=== PATIENT | male | born 1945 | race Caucasian/White ===

== ENCOUNTER 2020-06-13 00:13 | Outpatient (CLI) | payer MEDICARE, SELFPAY ==
[2020-06-13 18:31] LABS: SARS-CoV-2 RNA PCR Negative
== END 2020-06-13 00:14 | disposition home or self-care (01) ==
LOC: ANHCOVIDDT 00:13
PROVIDERS: PCP Internal Medicine; Visit Provider Internal Medicine Gastroenterology
DX: Z01.812 Encounter for preprocedural laboratory examination (principal); Z11.59 Encounter for screening for other viral diseases
CPT/HCPCS: 87635; C9803; U0003

== ENCOUNTER 2020-06-16 02:15 | Day surgery (SDC) | payer MEDICARE, SELFPAY ==
[2020-06-09 14:38] VITALS: BMI 25.4
[2020-06-16] MEDS: LACTATED RINGERS 1,000 ML 150 ML IV CONT (06:45)
[2020-06-16 06:47] VITALS: BP 141/98; PULSE 83; RESP 16; TEMP 36.6; O2SAT 98; BMI 25.2
--- NOTE | 2020-06-16 07:08 | P.PNAN_ITS ---
Anes - Initial Pre Proc Eval Procedure: Operation Date: 06/16/20 07:30 Proposed Procedures p Screening Colonoscopy - Herb Kramer MD Date/Time: 06/16/20 07:08 Surgeon: Herb Kramer MD Pre Op Diagnosis: Fam Hx Colon Ca Patient Data Age: 74 Gender: M Height: 6 ft 2 in Weight: 89.2 kg Last Vital Signs Temp 97.9 F 06/16/20 06:47 Pulse 83 06/16/20 06:47 Resp 16 06/16/20 06:47 BP 141/98 H 06/16/20 06:47 Pulse Ox 98 06/16/20 06:47 Allergies Allergy/AdvReac Type Severity Reaction Status Date / Time aspirin Allergy Unknown Gastrointestinal Verified 06/16/20 06:32 Upset SEAFOOD Allergy Severe HIVES Uncoded 06/16/20 06:32 Home Medications Medication Instructions Recorded Confirmed Type cholecalciferol (vitamin D3) 10 mcg PO DAILY 06/09/20 06/16/20 History [Vitamin D3] cyanocobalamin (vitamin B-12) 1,000 mcg PO DAILY 06/09/20 06/16/20 History duloxetine [Cymbalta] 90 mg PO DAILY 06/09/20 06/16/20 History finasteride 5 mg PO DAILY 06/09/20 06/16/20 History levothyroxine 88 mcg PO DAILY 06/09/20 06/16/20 History losartan 100 mg PO DAILY 06/09/20 06/16/20 History montelukast [Singulair] 10 mg PO DAILY 06/09/20 06/16/20 History Patient hx anesthesia problems: none Family hx anesthesia problems: none [facility] Past Medical History Medical History (Updated 06/15/20 @ 12:39 by Navarro Kahn MD) Anxiety Depression Hypertension Hypothyroid MARIBEL (obstructive sleep apnea) Family History Family History (Updated 12/14/16 @ 13:15 by DOCTOR UNKNOWN) Other Family history of malignant neoplasm Social History Social History Smoking status: Former smoker Smoking end date: 11/27/74 Alcohol intake: current Anes - Eval Final PreProcedure Day of Procedure 06/16/20 07:08 Patient weight: normal Heart: regular rate and rhythm Lungs: clear to auscultation Airway: Mallampati scale class II Neurological: alert and oriented Last oral intake: >/= 8 hours ASA classification: III Emergent: no Anesthetic plan: proceed Anesthesia type and monitoring: general GIVS and standard monitoring Informed Consent: The patient's anesthetic plan and its attendant risks and benefits were discussed with the patient/family/POA. Questions were solicited and answers provided to the satisfaction of the patient/family/POA.
--- NOTE | 2020-06-16 07:57 | WPDGICN ---
Assessment and Plan Assessment and plan (1) Family history of colon cancer in father: Code(s): Z80.0 - Family history of malignant neoplasm of digestive organs Status: Acute Assessment and Plan: Patient's father had colon cancer plan is for surveillance colonoscopy now and at 5 year intervals in the future. GI Consult Note Consult date/time: 06/16/20 07:57 HPI: Contreras Pulliam is a 74 year old male Seen in evaluation at the request of Dr. Jim Butterfield. Patient presents for screening colonoscopy. His current weight appetite bowel movements are normal. He denies abdominal pain. He denies bleeding. His bowel habits are regular. Family history is significant his father with colon cancer. There is no other family history of colon polyps. Patient's last colonoscopy 2012. Review of Systems Review of Systems: All systems reviewed & are unremarkable except as noted in HPI and below PMFSH Past Medical History Medical History Anxiety Depression Hypertension Hypothyroid MARIBEL (obstructive sleep apnea) Family History Family History Other Family history of malignant neoplasm Social History Social History Smoking status: Former smoker Smoking end date: 11/27/74 Alcohol intake: current Meds Home Medications and Allergies Home Medications Medication Instructions Recorded Confirmed Type cholecalciferol (vitamin D3) 10 mcg PO DAILY 06/09/20 06/16/20 History [Vitamin D3] cyanocobalamin (vitamin B-12) 1,000 mcg PO DAILY 06/09/20 06/16/20 History duloxetine [Cymbalta] 90 mg PO DAILY 06/09/20 06/16/20 History finasteride 5 mg PO DAILY 06/09/20 06/16/20 History levothyroxine 88 mcg PO DAILY 06/09/20 06/16/20 History losartan 100 mg PO DAILY 06/09/20 06/16/20 History montelukast [Singulair] 10 mg PO DAILY 06/09/20 06/16/20 History Allergies Allergy/AdvReac Type Severity Reaction Status Date / Time aspirin Allergy Unknown Gastrointestinal Verified 06/16/20 06:32 Upset SEAFOOD Allergy Severe HIVES Uncoded 06/16/20 06:32 Vital Signs Vital Signs - 24 hr 06/16/20 06:47 Temperature 97.9 F Pulse Rate 83 Respiratory Rate 16 Blood Pressure 141/98 H Pulse Oximetry 98 Exam Narrative: Exam Narrative: Physical exam reveals patient to be alert. Vital signs stable. HEENT exam unremarkable. Lungs are clear to auscultation and percussion. Heart is without murmur or extra sounds. Abdominal exam bowel sounds are present soft nontender with no hepatosplenomegaly. Digital external rectal exam normal.
[2020-06-16 07:58] VITALS: BP 137/85; PULSE 52; RESP 16; O2SAT 100
[2020-06-16 08:08] VITALS: BP 153/92; PULSE 46; RESP 16; O2SAT 100
[2020-06-16 08:18] VITALS: BP 152/91; PULSE 53; RESP 16; O2SAT 100
== END 2020-06-16 08:35 | disposition home or self-care (01) ==
PROVIDERS: PCP Internal Medicine; Visit Provider Internal Medicine Gastroenterology
PROC: 0DJD8ZZ Inspection of Lower Intestinal Tract, Via Natural or Artificial Opening Endoscopic (ICD-10-PCS; CPT 45378; principal; 2020-06-16 07:30)
DX: Z12.11 Encounter for screening for malignant neoplasm of colon (principal); K64.8 Other hemorrhoids; Z80.0 Family history of malignant neoplasm of digestive organs; I10 Essential (primary) hypertension; E03.9 Hypothyroidism, unspecified; G47.33 Obstructive sleep apnea (adult) (pediatric); F41.8 Other specified anxiety disorders; Z87.891 Personal history of nicotine dependence
CPT/HCPCS: G0105; J2704; J7120

== ENCOUNTER 2025-06-24 01:58 | Day surgery (SDC) | payer MEDICARE, SELFPAY ==
[2025-06-11 09:54] VITALS: BMI 26.9
--- OUTSIDE RECORDS SUMMARY | 2025-06-24 02:00 | XMS_ITS | Clinical Summary ---
Author Organization [facility] Address [address] [place] [address] Care Team Providers Care Lead Manufacturing Technician Name Role Phone Jim Butterfield MD Primary Care Provider [phone] Source Comments [facility],non-owned Affiliates and Associated Physician Practices is amultiple site organization consisting of ambulatory clinics and hospital sitesin [place], [place], [place] and [place]. This disclosure is being madepursuant to the Care Everywhere program and may not contain all information available regarding this patient. 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 Gender Identity Not on file Sexual Orientation Not on file Plan of Treatment Health Maintenance Due Date Last Done Comments HEPATITIS C SCREENING 06/30/1963 DTAP/TDAP/TD VACCINES (1 - Tdap) 1966 PNEUMOCOCCAL VACCINE 50+ (1 of 1 - PCV) 1997 ZOSTER VACCINE (1 of 2) 1997 Respiratory Syncytial Virus (RSV) Vaccine Pt: or over 60 yrs (1 - 1-dose 75+ series) 2022 COVID-19 VACCINE ( - 2023-2 5 season) 2024 DEPRESSION SCREENING 11/27/2024 INFLUENZA VACCINE (#1) 2025 HEPATITIS B VACCINE Aged Out No longe r eligible based on patient's age to complete this topic HIB VACCINE Aged Out No longer eligi ble based on patient's age to complete this topic HPV VACCINE Aged Out No longer eligi ble based on patient's age to complete this topic MENINGOCOCCAL (Group B) VACC INE SHARED DECISION-MAKING Aged Out No longer eligibl e based on patient's age to complete this topic MENINGOCOCCAL GROUPS A/C/Y/W VACCINE Aged Out No longer eligible b ased on patient's age to complete this topic Insurance [facility] AETNA Care Teams Lead Manufacturing Technician Relationship Specialty Start Date End Date Jim Butterfield MD [address] [place] [address] [place] [id number] PCP - General 11/02/10
--- OUTSIDE RECORDS SUMMARY | 2025-06-24 02:00 | XMS_ITS | Encounter Summary ---
Author Organization [facility] Address [address] [place] [address] Care Team Providers Care Director Of Rooms Name Role Phone Jim Butterfield MD Primary Care Provider [phone] Encounter Details Date Type Department Care Team (Late st Contact Info) Description 01/19/2022 Lab Requisition [facility] [address] [place] [id number] Jose Mendosa MD [address] [place] [address] Social History Tobacco Use Types Packs/Day Years Used Date Smoking Tobacco: Never Assessed Sex and Gender Information Value Date Recorded Sex Assigned at Not on file Legal 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 Gender Identity Not on file Sexual Orientation Not on file documented as of this encounter Plan of Treatment Not on file documented as of this encounter Procedures Procedure Name Priority Date/Time Associated Diagnosis Comments DERMATOPATHOLOGY Routine 01/18/2022 12:0 0 AM BUSINESS UNIT CONTROLLER documented in this encounter Results * DERMATOPATHOLOGY (01/18/2022 12:00 AM BUSINESS UNIT CONTROLLER) Case Report Dermatopathology Report Case: [id number] Authorizing Provider: Jose Mendosa MD Collected: 01/18/2022 12:00 AM Ordering Location: [facility] Received: 01/19/2022 04:05 PM Pathologist: Reanna Barrett MD Specimen: Skin, right low back 3:36 PM BUSINESS UNIT CONTROLLER DERMATOPATHOLOGY LABORATORY Final Diagnosis Specimen A. SKIN, right low back: COMPOUND MELANOCYTIC NEVUS (D22.5) ACTINIC KERATOSIS, FOCAL (L57.0) (see microscopic description) 2 3:36 PM [facility] DERMATOPATHOLOGY LABORATORY at [address] BUSINESS UNIT CONTROLLER Clinical History Nevus vs MM. Path # [id number]. 2 3:36 PM [facility] DERMATOPATHOLOGY LABORATORY Gross Description Specimen A: Received is one formalin filled container labeled with the patient's name and designated right low back. The specimen consists of a shave biopsy measuring [id number]. Jar 0. 2 3:36 PM [facility] DERMATOPATHOLOGY LABORATORY Microscopic Description Specimen A. SKIN, right low back: There are nests of melanocytes at the dermal-epidermal junction and within the dermis, highlighted by MART-1/Melan-A immunostain. There is focal parakeratosis. The lower half of the epidermis shows focal disorderly maturation of keratinocytes with nuclear pleomorphism. 2 3:36 PM [facility] DERMATOPATHOLOGY LABORATORY Disclaimer An external and internal positive and negative controls are appropriate for the histochemical, immunohistochemical and immunofluorescence stain(s) in this case (if any), except where stated explicitly. The performance characteristics of the stain(s) cited in this report were developed and its performance characteristic determined by the Dermatopathology Laboratory at [facility], directed by Dr. Bing Jansen. These tests need not be, and therefore are not, approved by the [place] Food and Drug Administration. The tests are used for clinical purposes. Billing Codes Specimen Charges Stain Charges 42908 1 98565 1 2 3:36 PM [facility] DERMATOPATHOLOGY LABORATORY Embedded Images 2 3:36 PM [facility] DERMATOPATHOLOGY LABORATORY Pathology/Cytolog y TISSUE SPECIMEN FROM SKIN / Unknown 01/18/2022 01/19/2022 4:05 PM [facility] us Jose Mendosa MD LAB - PATHOLOGY/CYTOLOGY ORDER KATHRYN Final Result DERMATOPATHOLOGY LABORATORY [facility] - Department of Dermatology [address] [phone] documented in this encounter Visit Diagnoses Not on filedocumented in this encounter Care Teams Director Of Rooms Relationship Specialty Start Date End Date Jim Butterfield MD [address] [place] [phone] PCP - General 11/02/10 documented as of this encounter
--- OUTSIDE RECORDS SUMMARY | 2025-06-24 02:00 | XMS_ITS | Clinical Summary ---
Author Organization [facility] Address [address] [place] [address] Care Team Providers Care Licensed Esthetician Name Role Phone Mary Parks Primary Care Provider [phone] Allergies Active Allergy Reactions Criticality Noted Date Comments Aspirin GI Upset Low 06/18/2020 Shellfish-Derived Products Hives Medium 0 Medications DULoxetine 60 MG capsule Take 1 capsule (60 mg total) by mouth daily. 0 Active finasteride 5 MG tablet Take 1 tablet (5 mg total) by mouth daily. 0 Active EUTHYROX 88 MCG tablet Take 1 tablet (88 mcg total) by mouth daily. 0 Active montelukast 10 MG tablet Take 1 tablet (10 mg total) by mouth nightly at bedtime. 0 Active SF 5000 PLUS 1.1 % Cream USE SMALL AMOUNT TWICE DAILY BRUSH AND SPIT OUT EXCESS. DO NOT RINSE WITH WATER AFTER. 0 Active vitamin D3, cholecalciferol , 1000 UNIT Tab tablet Take 1 tablet (1,000 Units total) by mouth daily. Active Cyanocobalamin (VITAMIN B 12 OR) Take 1,000 mcg by mouth daily. Active AZELASTINE 137 MCG/SPRAY nasal spray 2 sprays by Nasal route 2 (two) times daily. 0 Active fluticasone propionate 50 MCG/ACT nasal spray 2 sprays by Each Nostril route daily. Active zinc sulfate 220 MG capsule Take 1 capsule (50 mg of elemental zinc total) by mouth daily. Active vitamin C 1000 MG tablet Take 1 tablet (1,000 mg total) by mouth daily. Active olmesartan (BENICAR) 40 MG tablet Take 1 tablet (40 mg total) by mouth daily. 3 Active amLODIPine (NORVASC) 5 MG tablet Take 1 tablet (5 mg total) by mouth every evening. 3 Active rosuvastatin (CRESTOR) 5 MG tablet Take 1 tablet (5 mg total) by mouth daily. 3 Active levocetirizine (XYZAL ALLERGY 24HR) 5 MG tabletIndicatio ns:Acute non-recurrent frontal sinusitis Take 1 tablet (5 mg total) by mouth daily. 30 tablet 4 Active Hospital, Clinic, or Other Facility Administered Medication Ordered Dose Route Frequency Start Date End Date Status triamcinolone acetonide (KENALOG-40) injection 40 mgIndications:Acute non-recurrent frontal sinusitis,Wheezing 40 mg IM Once 12/06/2023 Active Active Problems Problem Noted Date Diagnosed Date Pulmonary emboli ([facility] [address]) 06/03/2022 Immunizations Immunization Administration Dates Next Due MODERNA COVID-19 (12+) MRNA, LNP-S, PF, 100 MCG/ 0.5 ML DOSE 01/21/2021,12/24/2020 Shingrix 07/13/2018 Family History Medical History Relation Comments Colon Cancer Father No Known Problems Maternal Grandfather No Known Problems Maternal Grandmother Cancer Mother Myeloma No Known Problems Paternal Grandfather No Known Problems Paternal Grandmother Relation Status Comments Brother Alive Daughter Alive Father Maternal Grandfather Maternal Grandmother Mother Paternal Grandfather Paternal Grandmother Son Alive Social History Tobacco Use Types Packs/Day Years Used Date Smoking Tobacco: Former Cigarettes 1 10 Passive Smoke Exposure: Past Smokeless Tobacco: Never Tobacco Cessation:Counseling Given: No Comments:non smoker, quit age 29 Alcohol Use Standard Drinks/Week Comments Yes 0 (1 standard drink = 0.6 oz pur e alcohol) 3-4 beers/week AUDIT-C Answer Date Recorded Q1: How often do you have a drink containing alc ohol? 2-4 times a month 06/18/2020 Q2: How many drinks containi ng alcohol do you have on a typical day when you are drinking? 1 or 2 06/18/2020 Q3: How often do you have si x or more drinks on one occasion? Never 06/18/2020 PHQ-2 Answer Date Recorded Patient Health Questionnaire-2 Score 0 12/06/2023 Sex and Gender Information Value Date Recorded Sex Assigned at Male 06/18/2020 8:48 AM CDT Legal Sex Male 5:46 PM CDT Gender Identity Male 06/18/2020 8:48 AM CDT Sexual Orientation Straight 06/18/2020 8: 48 AM CDT Last Filed Vital Signs Vital Sign Reading Time Taken Comments Blood Pressure 153/77 02/21/2025 5:31 PM CDT Pulse 57 02/21/2025 5:31 PM CDT Temperature 36.4 C (97.5 F) 02/21/2025 5:31 PM CDT Respiratory Rate 16 02/21/2025 5:31 PM CDT Oxygen Saturation 99% 02/21/2025 5:31 PM CDT Inhaled Oxygen Concentration - - Weight 95.3 kg (210 lb) 02/21/2025 2:07 PM CDT Height 185.4 cm (6' 1) 02/21/2025 2:07 PM CDT Body Mass Index 27.71 02/21/2025 2:07 PM CDT Plan of Treatment Health Maintenance Due Date Last Done Comments Hepatitis C 1963 DTaP, Tdap and Td Vaccines (1 - Tdap) 1966 Pneumococcal Vaccine: 50+ Years (1 of 1 - PCV) 1997 Annual Medicare Wellness Visit 2012 Zoster Vaccines (2 of 2) 09/07/2018 07/13/2018 RSV Immunization or 60+ Years (1 - 1-dose 75+ series) 2022 COVID-19 Vaccine ( season) 2024 09/29/2023, 09/26/2022, 09/19/2021, Additional history exists PHQ-2 (Physician Randall) 11/27/2024 12/06/2023 Meningococcal B Vaccine Aged Out No l onger eligible based on patient's age to complete this topic Meningococcal Vaccine Aged Out No marleen pete eligible based on patient's age to complete this topic RSV Immunizations Under 20 Months Aged Out No longer eligible based on patient's age to complete this topic Insurance AET[employer] Advance Directives * Full Code (Latest Code Status on File) Date Activated Date Inactivated Comments 06/04/2022 2:06 PM 06/05/2022 4:02 PM Care Teams Licensed Esthetician Relationship Specialty Start Date End Date Mary Parks PA [address] [place] [phone] PCP - General PHYSICIAN SUPERVISOR COREMAKER 02/21/25
--- OUTSIDE RECORDS SUMMARY | 2025-06-24 02:01 | XMS_ITS | Patient Health Record ---
Author Organization [facility] [employer] [facility] [place] ([address]) Address [address] [place] [address] Care Team Providers Care Head Concierge Name Role Phone Kasey Mary Primary Care Provider Unavailab Georgina Miller Unavailable [phone] Allergies No Known Allergies Results Component Value Reference Range Notes Spirometry Reviewed date: Interpretation:Abnormal Performing Lab: Notes/Report: Abnormal SpiroPreBronchodilator_FVC 3.87 SpiroPostBronchodilator_FEF25_75 0 SpiroPreBronchodilator_FEF25_75 2.1 SpiroPreBronchodilator_FEV1 2.79 SpiroPrecentPredictionPost_FEF25_75 0 SpiroPrecentPredictionPost_FEV1 0 SpiroPrecentPredictionPost_FEV1_OVER_FVC 0 SpiroPrecentPredictionPost_FVC 0 SpiroPrecentPredictionPre_FEF25_75 68 SpiroPrecentPredictionPre_FEV1 73 SpiroPrecentPredictionPre_FEV1_OVER_FVC 97.5 SpiroPrecentPredictionPre_FVC 75.4 SpiroPredicted_FEF25_75 3.09 SpiroPreBronchodilator_FEV1_OVER_FVC 72.14 SpiroPreBronchodilator_PEF 4.87 SpiroPostBronchodilator_FVC 0 SpiroPostBronchodilator_FEV1 0 SpiroPostBronchodilator_FEV1_OVER_FVC 0 SpiroPostBronchodilator_PEF 0 SpiroPredicted_FVC 5.13 SpiroPredicted_FEV1 3.82 SpiroPredicted_FEV1_OVER_FVC 74.02 SpiroPredicted_PEF 9.22 Reason For Referral No Information Medications Medication SIG (Take, Route, Frequency, Duration) Notes Start Date End Date Status Zinc *Please review and pick correct strength-formulat ion from [employer] options. If intended option is not shown, discontinue and re-order from Quick Search* Active Singulair *Please review and pick correct strength-formulat ion from [employer] options. If intended option is not shown, discontinue and re-order from Quick Search* Active amLODIPine Besylate *Please revi ew and pick correct strength-formulat ion from [employer] options. If intended option is not shown, discontinue and re-order from Quick Search* Active EPINEPHrine 0.3 MG DIRECTED INTRAMUSCULARLY ONCE; Duration: 1 DAYS *Please review and pick correct strength-formulat ion from [employer] options. If intended option is not shown, discontinue and re-order from Quick Search* Active Cyanocobalamin 1000 MCG 1 tab(s) orally once a day Active Azelastine HCl 137 MCG/SPRAY 2 spray(s) intranasally 2 times a day; Duration: 30 days Active DULoxetine HCl 60 MG 1 cap(s) orally onc e a day Active Levocetirizine Dihydrochloride 5 MG 1 tab(s) orally once a day (in the evening); Duration: 30 days Active Esomeprazole Magnesium 20 MG 1 cap(s) orally once a day Active AZELASTINE NASAL 137 mcg/inh 2 spray(s) intranasally 2 times a day; Duration: 30 days Active Finasteride 5 MG 1 tab(s) orally once a day Active X-1 *Please re view and pick correct strength-formulat ion from [employer] options. If intended option is not shown, discontinue and re-order from Quick Search* Active LEVOCETIRIZINE 5 mg 1 tab(s) orally once a day (in the evening); Duration: 30 days Active EPINEPHRINE 0.3 mg as directed intramuscularly once; Duration: 1 days Active Levothyroxine Sodium 88 MCG 1 tab(s) orally once a day Active Benicar *Please review and pick correct strength-formulat ion from [employer] options. If intended option is not shown, discontinue and re-order from Quick Search* Active Rosuvastatin Calcium 5 MG 1 tab(s) orally once a day Active Immunizations Vaccine Route Administration Date Status Comme nts NOC Pneumovax 23 IM Intramuscular 04/10/2024 Administered NOC PedvaxHIB IM Intramuscular 04/10/2024 Administered Social History Tobacco Use: Social History Observation Description Date Details (start date - stop date) Former Smoker NA - NA Sex Assigned At : Social History Observation Description Sex Assigned At Female Smoking Smart Form: Question Answer Notes Are you a: former smoker How long it has been since you last smoked? > 10 years Tobacco Control (Standard) Question Answer Notes Tobacco use: Former smoker How long has it been since you last smoked? 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) Active confirmed Problem Food allergy (272543941) Allergy to other foods (Z91.018) Active confirmed Problem Allergic rhinitis caused by animal hair and dander (486451923740642) Allergic rhinitis due to animal (cat) (dog) hair and dander (J30.81) Active confirmed Problem Chronic sinusitis (93995821) Chronic sinusitis, unspecified (J32.9) Active confirmed Vital Signs Blood pressure diastolic 75 mm Hg 01/14/2025 Oximetry 99 % 01/14/2025 Height 75 in 01/14/2025 Blood pressure systolic 128 mm Hg 01/14/2025 Weight 216.4 lbs 01/14/2025 BMI 27.05 kg/m2 01/14/2025 Encounters Encounter Location Date Provider Diagnosis [facility] [address] [address] 06/24/2024 Georgina Flores Allergic rhinitis du e to pollen J30.1 ; Allergic rhinitis due to animal (cat) (dog) hair and dander J30.81 ; Other allergic rhinitis J30.89 and Other chronic allergic conjunctivitis H10.45 [facility] [address] [place], [place] [address] [address] [address] 07/01/2024 Georgina Flores Allergic rhinitis du e to pollen J30.1 ; Other allergic rhinitis J30.89 ; Allergic rhinitis due to animal (cat) (dog) hair and dander J30.81 and Other chronic allergic conjunctivitis H10.45 [facility] [address] [place] [address] [employer] [address] [address] 07/10/2024 Georgina Flores Allergic rhinitis du e to pollen J30.1 ; Chronic sinusitis, unspecified J32.9 ; Allergic rhinitis due to animal (cat) (dog) hair and dander J30.81 ; Other allergic rhinitis J30.89 ; Other chronic allergic conjunctivitis H10.45 ; Shortness of breath R06.02 ; Allergy to other foods Z91.018 ; Allergy to seafood Z91.013 and Headache, unspecified R51.9 [facility] [address] [place] [address] [employer] [address] [address] 07/15/2024 Georgina Flores Allergic rhinitis du e to pollen J30.1 ; Other allergic rhinitis J30.89 ; Allergic rhinitis due to animal (cat) (dog) hair and dander J30.81 and Other chronic allergic conjunctivitis H10.45 [facility] [address] [place] [address] [employer] [address] [address] 07/22/2024 Georgina Flores Allergic rhinitis du e to pollen J30.1 ; Other allergic rhinitis J30.89 ; Allergic rhinitis due to animal (cat) (dog) hair and dander J30.81 and Other chronic allergic conjunctivitis H10.45 [facility] [address] [place], [place] [address] [address] [place] [phone] 07/30/2024 Georgina Flores Allergic rhinitis du e to pollen J30.1 ; Other allergic rhinitis J30.89 ; Allergic rhinitis due to animal (cat) (dog) hair and dander J30.81 and Other chronic allergic conjunctivitis H10.45 [facility] [address] [place], [place] [address] [address] [place] [phone] 08/12/2024 Georgina Flores Allergic rhinitis du e to pollen J30.1 ; Other allergic rhinitis J30.89 ; Allergic rhinitis due to animal (cat) (dog) hair and dander J30.81 and Other chronic allergic conjunctivitis H10.45 [facility] [address] [place], [place] [address] [address] [place] [phone] 08/26/2024 Georgina Flores Allergic rhinitis du e to pollen J30.1 ; Other allergic rhinitis J30.89 ; Allergic rhinitis due to animal (cat) (dog) hair and dander J30.81 and Other chronic allergic conjunctivitis H10.45 [facility] [address] [place], [place] [address] [address] [place] [phone] 09/11/2024 Georgina Flores Allergic rhinitis du e to pollen J30.1 ; Other allergic rhinitis J30.89 ; Allergic rhinitis due to animal (cat) (dog) hair and dander J30.81 and Other chronic allergic conjunctivitis H10.45 [facility] [address] [place], [place] [address] [address] [place] [phone] 10/09/2024 Georgina Flores Allergic rhinitis du e to pollen J30.1 ; Other allergic rhinitis J30.89 ; Allergic rhinitis due to animal (cat) (dog) hair and dander J30.81 and Other chronic allergic conjunctivitis H10.45 [facility] [address] [place], [place] [address] [address] [place] [phone] 10/16/2024 Georgina Flores Allergic rhinitis du e to pollen J30.1 ; Other allergic rhinitis J30.89 ; Allergic rhinitis due to animal (cat) (dog) hair and dander J30.81 and Other chronic allergic conjunctivitis H10.45 [facility] [address] [place], [place] [address] [address] [place] [phone] 10/23/2024 Georgina Flores Allergic rhinitis du e to pollen J30.1 ; Other allergic rhinitis J30.89 ; Allergic rhinitis due to animal (cat) (dog) hair and dander J30.81 and Other chronic allergic conjunctivitis H10.45 [facility] [address] [place], [place] [address] [address] [place] [phone] 11/25/2024 Georgina Flores Allergic rhinitis du e to pollen J30.1 ; Other allergic rhinitis J30.89 ; Allergic rhinitis due to animal (cat) (dog) hair and dander J30.81 and Other chronic allergic conjunctivitis H10.45 [facility] [address] [place] [address] [employer] [address] [address] 12/24/2024 Georgina Flores Allergic rhinitis du e to pollen J30.1 ; Other allergic rhinitis J30.89 ; Allergic rhinitis due to animal (cat) (dog) hair and dander J30.81 and Other chronic allergic conjunctivitis H10.45 [facility] [address] [place] [address] [employer] [address] [address] 01/14/2025 Georgina Flores Allergic rhinitis du e to pollen J30.1 ; Chronic sinusitis, unspecified J32.9 ; Allergic rhinitis due to animal (cat) (dog) hair and dander J30.81 ; Other allergic rhinitis J30.89 ; Other chronic allergic conjunctivitis H10.45 ; Shortness of breath R06.02 ; Allergy to other foods Z91.018 and Allergy to seafood Z91.013 [facility] [address] [place] [address] [employer] [address] [address] 02/27/2025 Georgina Flores Allergic rhinitis du e to pollen J30.1 ; Other allergic rhinitis J30.89 ; Allergic rhinitis due to animal (cat) (dog) hair and dander J30.81 and Other chronic allergic conjunctivitis H10.45 [facility] [address] [place] [address] [employer] [address] [address] 03/05/2025 Georgina Flores Allergic rhinitis du e to pollen J30.1 ; Other allergic rhinitis J30.89 ; Allergic rhinitis due to animal (cat) (dog) hair and dander J30.81 and Other chronic allergic conjunctivitis H10.45 [address] [address] 04/03/2025 Georgina Flores Allergic rhinitis du e to pollen J30.1 ; Other allergic rhinitis J30.89 ; Allergic rhinitis due to animal (cat) (dog) hair and dander J30.81 and Other chronic allergic conjunctivitis H10.45 [facility] [address] [place] [phone] 05/01/2025 Georgina Flores Allergic rhinitis du e to pollen J30.1 ; Other allergic rhinitis J30.89 ; Allergic rhinitis due to animal (cat) (dog) hair and dander J30.81 and Other chronic allergic conjunctivitis H10.45 [facility] [address] [place] [phone] 05/29/2025 Georgina Flores Allergic rhinitis du e to pollen J30.1 ; Other allergic rhinitis J30.89 ; Allergic rhinitis due to animal (cat) (dog) hair and dander J30.81 and Other chronic allergic conjunctivitis H10.45 Assessments Encounter Date Diagnosis (ICD Code) Assessment Notes Treatment Notes Treatment Clinical Notes Section Notes 06/24/2024 Allergic rhinitis due to pollen (ICD-10 - J30.1) 07/01/2024 Allergic rhinitis due to pollen (ICD-10 - J30.1) 07/01/2024 Other allergic rhinitis (ICD-10 - J30.89) 07/10/2024 Allergic rhinitis due to pollen (ICD-10 - J30.1) Contreras clearly suffers from atopic disease based upon our skin testing and clinical history. Accordingly, we have introduced a new, aggressive medication regimen, discussed nasal washes and allergy-specific avoidance measures. We also discussed adjunctive therapies including subcutaneous, specific allergen immunotherapy as relates to the treatment and prevention of atopic disease. He is tolerating SCIT without large local or systemic symptoms. He was instructed to carry his epinephrine autoinjector for 2 hours after leaving the office. 07/10/2024 Chronic sinusitis, unspecified (ICD-10 - J32.9) IgG 786, IgM 23, IgA 235, IgE 227, reduced S. Pneumo titers and HIB. Normal tetanus. Pneumovax given and repeat labs +15/23 serotypes. Labs ordered due to requiring antibiotics 4 times in the last year for sinusitis. Continue to treat atopic disease and monitor for improvement. 07/15/2024 Allergic rhinitis due to pollen (ICD-10 - J30.1) 07/15/2024 Other allergic rhinitis (ICD-10 - J30.89) 07/22/2024 Allergic rhinitis due to pollen (ICD-10 - J30.1) 07/22/2024 Other allergic rhinitis (ICD-10 - J30.89) 08/12/2024 Allergic rhinitis due to pollen (ICD-10 - J30.1) 08/12/2024 Other allergic rhinitis (ICD-10 - J30.89) 08/26/2024 Allergic rhinitis due to pollen (ICD-10 - J30.1) 08/26/2024 Other allergic rhinitis (ICD-10 - J30.89) 09/11/2024 Allergic rhinitis due to pollen (ICD-10 - J30.1) 09/11/2024 Other allergic rhinitis (ICD-10 - J30.89) 10/09/2024 Allergic rhinitis due to pollen (ICD-10 - J30.1) 10/09/2024 Other allergic rhinitis (ICD-10 - J30.89) 10/16/2024 Allergic rhinitis due to pollen (ICD-10 - J30.1) 10/16/2024 Other allergic rhinitis (ICD-10 - J30.89) 10/23/2024 Allergic rhinitis due to pollen (ICD-10 - J30.1) 10/23/2024 Other allergic rhinitis (ICD-10 - J30.89) 11/25/2024 Allergic rhinitis due to pollen (ICD-10 - J30.1) 11/25/2024 Other allergic rhinitis (ICD-10 - J30.89) 07/30/2024 Other allergic rhinitis (ICD-10 - J30.89) 07/30/2024 Allergic rhinitis due to pollen (ICD-10 - J30.1) 12/24/2024 Allergic rhinitis due to pollen (ICD-10 - J30.1) 12/24/2024 Other allergic rhinitis (ICD-10 - J30.89) 01/14/2025 Allergic rhinitis due to pollen (ICD-10 - J30.1) Contreras clearly suffers from atopic disease based upon our skin testing and clinical history. Accordingly, we have introduced a new, aggressive medication regimen, discussed nasal washes and allergy-specific avoidance measures. We also discussed adjunctive therapies including subcutaneous, specific allergen immunotherapy as relates to the treatment and prevention of atopic disease. He is tolerating SCIT without large local or systemic symptoms. He was instructed to carry his epinephrine autoinjector for 2 hours after leaving the office. Samples of sinus rinses given to help with congestion. 01/14/2025 Chronic sinusitis, unspecified (ICD-10 - J32.9) IgG 786, IgM 23, IgA 235, IgE 227, reduced S. Pneumo titers and HIB. Normal tetanus. Pneumovax given and repeat labs +15/23 serotypes. Much improved with immunotherapy and receiving Pneumovax. 02/27/2025 Allergic rhinitis due to pollen (ICD-10 - J30.1) 02/27/2025 Other allergic rhinitis (ICD-10 - J30.89) 03/05/2025 Allergic rhinitis due to pollen (ICD-10 - J30.1) 03/05/2025 Other allergic rhinitis (ICD-10 - J30.89) 04/03/2025 Allergic rhinitis due to pollen (ICD-10 - J30.1) 04/03/2025 Other allergic rhinitis (ICD-10 - J30.89) 05/01/2025 Allergic rhinitis due to pollen (ICD-10 - J30.1) 05/01/2025 Other allergic rhinitis (ICD-10 - J30.89) 05/29/2025 Allergic rhinitis due to pollen (ICD-10 - J30.1) 05/29/2025 Other allergic rhinitis (ICD-10 - J30.89) 05/29/2025 Allergic rhinitis due to animal (cat) (dog) hair and dander (ICD-10 - J30.81) 05/01/2025 Allergic rhinitis due to animal (cat) (dog) hair and dander (ICD-10 - J30.81) 04/03/2025 Allergic rhinitis due to animal (cat) (dog) hair and dander (ICD-10 - J30.81) 03/05/2025 Allergic rhinitis due to animal (cat) (dog) hair and dander (ICD-10 - J30.81) 02/27/2025 Allergic rhinitis due to animal (cat) (dog) hair and dander (ICD-10 - J30.81) 01/14/2025 Allergic rhinitis due to animal (cat) (dog) hair and dander (ICD-10 - J30.81) Follow allergen avoidance, meds and continue SCIT as an adjunctive treatment to current regimen 12/24/2024 Allergic rhinitis due to animal (cat) (dog) hair and dander (ICD-10 - J30.81) 07/30/2024 Allergic rhinitis due to animal (cat) (dog) hair and dander (ICD-10 - J30.81) 11/25/2024 Allergic rhinitis due to animal (cat) (dog) hair and dander (ICD-10 - J30.81) 10/23/2024 Allergic rhinitis due to animal (cat) (dog) hair and dander (ICD-10 - J30.81) 10/16/2024 Allergic rhinitis due to animal (cat) (dog) hair and dander (ICD-10 - J30.81) 10/09/2024 Allergic rhinitis due to animal (cat) (dog) hair and dander (ICD-10 - J30.81) 09/11/2024 Allergic rhinitis due to animal (cat) (dog) hair and dander (ICD-10 - J30.81) 08/26/2024 Allergic rhinitis due to animal (cat) (dog) hair and dander (ICD-10 - J30.81) 08/12/2024 Allergic rhinitis due to animal (cat) (dog) hair and dander (ICD-10 - J30.81) 07/22/2024 Allergic rhinitis due to animal (cat) (dog) hair and dander (ICD-10 - J30.81) 07/15/2024 Allergic rhinitis due to animal (cat) (dog) hair and dander (ICD-10 - J30.81) 07/10/2024 Allergic rhinitis due to animal (cat) (dog) hair and dander (ICD-10 - J30.81) Follow allergen avoidance, meds and continue SCIT as an adjunctive treatment to current regimen 07/01/2024 Allergic rhinitis due to animal (cat) (dog) hair and dander (ICD-10 - J30.81) 06/24/2024 Allergic rhinitis due to animal (cat) (dog) hair and dander (ICD-10 - J30.81) 06/24/2024 Other allergic rhinitis (ICD-10 - J30.89) 07/10/2024 Other allergic rhinitis (ICD-10 - J30.89) 07/01/2024 Other chronic allergic conjunctivitis (ICD-10 - H10.45) 07/22/2024 Other chronic allergic conjunctivitis (ICD-10 - H10.45) 08/12/2024 Other chronic allergic conjunctivitis (ICD-10 - H10.45) 08/26/2024 Other chronic allergic conjunctivitis (ICD-10 - H10.45) 09/11/2024 Other chronic allergic conjunctivitis (ICD-10 - H10.45) 10/09/2024 Other chronic allergic conjunctivitis (ICD-10 - H10.45) 10/16/2024 Other chronic allergic conjunctivitis (ICD-10 - H10.45) 10/23/2024 Other chronic allergic conjunctivitis (ICD-10 - H10.45) 11/25/2024 Other chronic allergic conjunctivitis (ICD-10 - H10.45) 07/30/2024 Other chronic allergic conjunctivitis (ICD-10 - H10.45) 12/24/2024 Other chronic allergic conjunctivitis (ICD-10 - H10.45) 07/15/2024 Other chronic allergic conjunctivitis (ICD-10 - H10.45) 01/14/2025 Other allergic rhinitis (ICD-10 - J30.89) 02/27/2025 Other chronic allergic conjunctivitis (ICD-10 - H10.45) 03/05/2025 Other chronic allergic conjunctivitis (ICD-10 - H10.45) 04/03/2025 Other chronic allergic conjunctivitis (ICD-10 - H10.45) 05/01/2025 Other chronic allergic conjunctivitis (ICD-10 - H10.45) 05/29/2025 Other chronic allergic conjunctivitis (ICD-10 - H10.45) 01/14/2025 Other chronic allergic conjunctivitis (ICD-10 - H10.45) Given ocular signs and symptoms I encouraged allergy avoidance measures and meds as above. If symptoms persist, consider adding additional medications including intraocular antihistamine/mas t cell stabilizer, PRN 07/10/2024 Other chronic allergic conjunctivitis (ICD-10 - H10.45) Given ocular signs and symptoms I encouraged allergy avoidance measures and meds as above. If symptoms persist, consider adding additional medications including intraocular antihistamine/mas t cell stabilizer, PRN 06/24/2024 Other chronic allergic conjunctivitis (ICD-10 - H10.45) 07/10/2024 Shortness of breath (ICD-10 - R06.02) Difficulty performing spirometry today and shows possible restriction. Continue Breztri which was started earlier this year by PCP 01/14/2025 Shortness of breath (ICD-10 - R06.02) off Breztri for 6 months and no shortness of breath. Much difficulty in the past performing spirometry 01/14/2025 Allergy to other foods (ICD-10 - Z91.018) He tolerates peanuts and cashews, almonds and pecans but needs strict avoidance of other nuts given positive ImmunoCAPs and history 07/10/2024 Allergy to other foods (ICD-10 - Z91.018) He tolerates peanuts and cashews, almonds and pecans but needs strict avoidance of other nuts given positive ImmunoCAPs and history 07/10/2024 Allergy to seafood (ICD-10 - Z91.013) continue strict avoidance based on ImmunoCAPs and history 01/14/2025 Allergy to seafood (ICD-10 - Z91.013) continue strict avoidance based on ImmunoCAPs and history 07/10/2024 Headache, unspecified (ICD-10 - R51.9) recommend f/u with PCP, symptoms are not consistent with allergies 01/14/2025 Other Plan Of Treatment Pending Test Test Name Order Date STREPTOCOCCUS PNEUMONIAE IGG AB (23 SERO TYPES) 04/10/2024 TETANUS ANTITOXOID ANTIBODY (EIA) 2023 IMMUNOGLOBULIN G 05/14/2024 IMMUNOGLOBULIN M 05/14/2024 HAEMOPHILUS INFLUENZAE B ANTIBODY, IGG 0 05/14/2024 HAEMOPHILUS INFLUENZAE B ANTIBODY, IGG 0 01/15/2024 HAEMOPHILUS INFLUENZAE B ANTIBODY, IGG 0 04/10/2024 Next Appt Details Provider Name:Georgina gee, 06/26/2025 09:30:00 AM, [address] [employer], [address], [address], Provider Name:Georgina gee, 07/15/2025 08:15:00 AM, [address] [employer], [address], [place], [address], Insurance Providers Payer Name Payer Address Payer Phone Subscriber Number Group Number Insured Name Patient Relationship to Insured Coverage Start Date Coverage End Date [employer] [address] LEI Calderon [phone] [id number] Contreras Pulliam Self - patient is the insured 4 4 [employer] [address] [place] Calder[place] [phone] [id number] Contreras Pulliam Self - patient is the insured 5 Medical (General) History Medical History History ICD Code Allergy to peanuts Z91.010 Chronic rhinitis J31.0 Surgical History Surgery Date(Month/Year) sinus surgery Hospitalization History Reason Date(Month/Year) Pulmonary Embolism 2021
[2025-06-24 08:21] VITALS: BP 130/87; PULSE 86; RESP 20; TEMP 36.6; O2SAT 97; BMI 26.1
[2025-06-24] MEDS: LACTATED RINGERS 1,000 ML 150 ML IV CONT (08:31)
--- NOTE | 2025-06-24 08:32 | P.PNAN_ITS ---
Anes - Initial Pre Proc Eval Procedure: Operation Date: 06/24/25 09:30 Proposed Procedures p Screening Colonoscopy - Abraham Weiner MD Date/Time: 06/24/25 08:32 Surgeon: Abraham Weiner MD Pre Op Diagnosis: neoplasm screening Patient Data Age: 79 Gender: M Height: 1.88 m Weight: 92.2 kg Last Vital Signs Temp 36.6 C 06/24/25 08:21 Pulse 86 06/24/25 08:21 Resp 20 06/24/25 08:21 BP 130/87 06/24/25 08:21 Pulse Ox 97 06/24/25 08:21 O2 Del Method Room Air 06/24/25 08:21 Allergies Allergy/AdvReac Type Severity Reaction Status Date / Time aspirin Allergy Unknown Gastrointestinal Verified 06/24/25 08:20 Upset levofloxacin AdvReac Other Verified 06/24/25 08:20 prednisone AdvReac Gastrointestinal Verified 06/24/25 08:20 Upset SEAFOOD Allergy Severe HIVES with Uncoded 06/24/25 08:20 Shell fish bee stings Allergy Hives Uncoded 06/24/25 08:20 nuts Allergy Hives Uncoded 06/24/25 08:20 Pet dander (dog & cat) Allergy allergic Uncoded 06/24/25 08:20 rhinitis Ragweed, cockroaches, Allergy Allergic Uncoded 06/24/25 08:20 grasses, trees rhinitis Home Medications ?Medication ?Instructions ?Recorded ?Confirmed ?Type cyanocobalamin (vitamin B-12) 1,000 mcg PO DAILY 06/09/20 06/24/25 History 1,000 mcg capsule epinephrine 0.3 mg/0.3 mL 0.3 mg (0.3 mL) IM ONCE #2 ea 07/07/22 06/11/25 Rx injection, auto-injector (EpiPen) esomeprazole magnesium 20 mg 20 mg PO DAILY 07/07/22 06/24/25 History capsule,delayed release (Nexium) zinc sulfate 25 mg zinc (110 mg) 25 mg PO DAILY 07/07/22 06/24/25 History tablet cholecalciferol (vitamin D3) 25 25 mcg PO DAILY #90 caps 01/26/23 06/24/25 Rx mcg (1,000 unit) capsule azelastine 137 mcg (0.1 %) nasal 2 spray intranasal ONCE #90 mL 09/16/24 06/24/25 Rx spray fluoride (sodium) 1.1 % dental gel dental 02/14/25 02/20/25 History celecoxib 200 mg capsule (Celebrex) 200 mg PO DAILY #14 caps 02/20/25 06/11/25 Rx olmesartan 40 mg tablet 40 mg PO DAILY #90 tabs 03/10/25 06/24/25 Rx rosuvastatin 5 mg tablet 5 mg PO DAILY #90 tabs 03/10/25 06/24/25 Rx amlodipine 5 mg tablet 5 mg PO QPM #90 tabs 03/17/25 06/24/25 Rx duloxetine 60 mg capsule,delayed 60 mg PO DAILY #90 ea 03/17/25 06/24/25 Rx release levocetirizine 5 mg tablet 5 mg PO DAILY #90 tabs 03/17/25 06/24/25 Rx finasteride 5 mg tablet 5 mg PO DAILY #90 tabs 04/23/25 06/24/25 Rx montelukast 10 mg tablet 10 mg PO DAILY #90 tabs 04/23/25 06/24/25 Rx (Singulair) levothyroxine 88 mcg tablet 88 mcg PO DAILY #90 tabs 05/08/25 06/24/25 Rx Patient hx anesthesia problems: none Family hx anesthesia problems: none Results Review: All pre-operative results and documents have been reviewed as part of the pre- operative evaluation. [facility] Past Medical History Medical History Lumbago Vitamin D deficiency Allergic rhinitis Hyperlipidemia Cough Screening PSA (prostate specific antigen) Medicare annual wellness visit, subsequent Nut allergy DVT (deep venous thrombosis) Pulmonary emboli Provoked by COVID 19. Diagnosed 06/03/22 Trigger finger of left hand History of gastroesophageal reflux (GERD) Melanoma Seasonal allergies Depression Anxiety Hypothyroid MARIBEL (obstructive sleep apnea) on CPAP Hypertension Surgical History Surgical History Hx of sinus surgery Family History Family History Father Carcinoma of colon Mother Myeloma Other Family history of malignant neoplasm Social History Social History Social History: 02/13/25 Patient declined SDOH Smoking status: Former smoker Tobacco type: cigarettes Smoking end date: 11/27/74 Additional smoking assessment comments: quit smoking age 29 Alcohol intake: current Drinks per week: 2 Substance use: never Do You Feel Safe in your Home?: Yes Lack of Transportation: No Lack of Food: Never True Current Housing: I Have Housing Concerned About Future Housing: No Difficulty Paying Gas/Electric Bills: No Difficulty Paying for Meds: No Currently Unemployed: No Education: Bachelor's Degree Difficulty w/ Childcare or Family Care: No Living arrangements: with family Occupation/Education: retired Gender identity (if verbalized by the patient): Male Spiritual care concerns: No Anes - Eval Final PreProcedure Day of Procedure 06/24/25 08:32 Patient weight: normal Heart: regular rate and rhythm Lungs: clear to auscultation Airway: Mallampati scale class II Neurological: alert and oriented Last oral intake: >/= 8 hours ASA classification: III Emergent: no Anesthetic plan: proceed Anesthesia type and monitoring: general GIVS and standard monitoring Results Review: All pre-operative results and documents have been reviewed as part of the pre- operative evaluation. Informed Consent: The patient's anesthetic plan and its attendant risks and benefits were discussed with the patient/family/POA. Questions were solicited and answers provided to the satisfaction of the patient/family/POA.
--- NOTE | 2025-06-24 08:59 | PM.HPGS ---
History of Present Illness History of Present Illness Consent: Risks, benefits, and alternatives have been discussed and questions answered. Patient agrees to proceed with procedure. Chief complaint: neoplasm screening Narrative: Contreras Pulliam is a 79 year old male with last colonoscopy 2019, father had colon cancer Review of Systems Review of Systems: All systems reviewed & are unremarkable except as noted in HPI and below PMFSH Past Medical History Medical History Lumbago Vitamin D deficiency Allergic rhinitis Hyperlipidemia Cough Screening PSA (prostate specific antigen) Medicare annual wellness visit, subsequent Nut allergy DVT (deep venous thrombosis) Pulmonary emboli Provoked by COVID 19. Diagnosed 06/03/22 Trigger finger of left hand History of gastroesophageal reflux (GERD) Melanoma Seasonal allergies Depression Anxiety Hypothyroid MARIBEL (obstructive sleep apnea) on CPAP Hypertension Surgical History Surgical History Hx of sinus surgery Family History Family History Father Carcinoma of colon Mother Myeloma Other Family history of malignant neoplasm Social History Social History Social History: 02/13/25 Patient declined SDOH Smoking status: Former smoker Tobacco type: cigarettes Smoking end date: 11/27/74 Additional smoking assessment comments: quit smoking age 29 Alcohol intake: current Drinks per week: 2 Substance use: never Do You Feel Safe in your Home?: Yes Lack of Transportation: No Lack of Food: Never True Current Housing: I Have Housing Concerned About Future Housing: No Difficulty Paying Gas/Electric Bills: No Difficulty Paying for Meds: No Currently Unemployed: No Education: Bachelor's Degree Difficulty w/ Childcare or Family Care: No Living arrangements: with family Occupation/Education: retired Gender identity (if verbalized by the patient): Male Spiritual care concerns: No Meds Home Medications and Allergies Home Medications ?Medication ?Instructions ?Recorded ?Confirmed ?Type cyanocobalamin (vitamin B-12) 1,000 mcg PO DAILY 06/09/20 06/24/25 History 1,000 mcg capsule epinephrine 0.3 mg/0.3 mL 0.3 mg (0.3 mL) IM ONCE #2 ea 07/07/22 06/11/25 Rx injection, auto-injector (EpiPen) esomeprazole magnesium 20 mg 20 mg PO DAILY 07/07/22 06/24/25 History capsule,delayed release (Nexium) zinc sulfate 25 mg zinc (110 mg) 25 mg PO DAILY 07/07/22 06/24/25 History tablet cholecalciferol (vitamin D3) 25 25 mcg PO DAILY #90 caps 01/26/23 06/24/25 Rx mcg (1,000 unit) capsule azelastine 137 mcg (0.1 %) nasal 2 spray intranasal ONCE #90 mL 09/16/24 06/24/25 Rx spray fluoride (sodium) 1.1 % dental gel dental 02/14/25 02/20/25 History celecoxib 200 mg capsule (Celebrex) 200 mg PO DAILY #14 caps 02/20/25 06/11/25 Rx olmesartan 40 mg tablet 40 mg PO DAILY #90 tabs 03/10/25 06/24/25 Rx rosuvastatin 5 mg tablet 5 mg PO DAILY #90 tabs 03/10/25 06/24/25 Rx amlodipine 5 mg tablet 5 mg PO QPM #90 tabs 03/17/25 06/24/25 Rx duloxetine 60 mg capsule,delayed 60 mg PO DAILY #90 ea 03/17/25 06/24/25 Rx release levocetirizine 5 mg tablet 5 mg PO DAILY #90 tabs 03/17/25 06/24/25 Rx finasteride 5 mg tablet 5 mg PO DAILY #90 tabs 04/23/25 06/24/25 Rx montelukast 10 mg tablet 10 mg PO DAILY #90 tabs 04/23/25 06/24/25 Rx (Singulair) levothyroxine 88 mcg tablet 88 mcg PO DAILY #90 tabs 05/08/25 06/24/25 Rx Allergies Allergy/AdvReac Type Severity Reaction Status Date / Time aspirin Allergy Unknown Gastrointestinal Verified 06/24/25 08:20 Upset levofloxacin AdvReac Other Verified 06/24/25 08:20 prednisone AdvReac Gastrointestinal Verified 06/24/25 08:20 Upset SEAFOOD Allergy Severe HIVES with Uncoded 06/24/25 08:20 Shell fish bee stings Allergy Hives Uncoded 06/24/25 08:20 nuts Allergy Hives Uncoded 06/24/25 08:20 Pet dander (dog & cat) Allergy allergic Uncoded 06/24/25 08:20 rhinitis Ragweed, cockroaches, Allergy Allergic Uncoded 06/24/25 08:20 grasses, trees rhinitis Vital Signs Vital Signs - 24 hr 06/24/25 08:21 Temperature 98 F Pulse Rate 86 Respiratory Rate 20 Blood Pressure 130/87 Pulse Oximetry 97 Oxygen Delivery Room Air Exam Const: General: comfortable and no acute distress HENMT: Face/Nose/Sinus: Normal nares present Eyes: General: appearance normal, both eyes and all related structures Neck: Neck: no JVD Resp: Auscultation: clear to auscultation bilaterally Cardio: Rate: regular rate Rhythm: regular rhythm GI: Inspection: non-distended GI Palp: Yes Soft to palpation Skin: General skin exam: normal color Neuro: General: gait normal Speech: normal speech Extrem: General: normal to inspection Psych: Mental Status: mental status grossly normal Assessment and Plan Assessment and plan (1) Family history of colon cancer in father: Code(s): Z80.0 - Family history of malignant neoplasm of digestive organs Status: Acute Assessment and Plan: colonoscopy
--- NOTE | 2025-06-24 09:17 | S_PTH ---
PATIENT: Contreras Pulliam LOC: [facility]#:[id number] AGE/SX: 79/M ROOM: RE06/24/[address]: Abraham Weiner MD : 1945 BED: DIS: 06/24/2025 SPEC #: [id number] RECD: 06/24/25 09:40 STATUS: NELLY LOCO #: [id number] YULIYA: 06/24/25 09:[address]: Abraham Weiner DEPT: [facility] Surgical RECD BY: Maciel Orozco ENTERED: 06/24/25 09:40 SP TYPE: Surgical OTHR DR: Mary Parks PA-C Tissues: A - Colon Polypectomy Procedures: Hematoxylin and Eosin Stain Gross and Microscopic Level 4
[2025-06-24 09:20] VITALS: BP 107/59; PULSE 64; RESP 16; O2SAT 97
[2025-06-24 09:30] VITALS: BP 113/66; PULSE 60; RESP 15; O2SAT 97
[2025-06-24 09:40] VITALS: BP 145/80; PULSE 65; RESP 20; O2SAT 98
== END 2025-06-24 10:05 | disposition home or self-care (01) ==
PROVIDERS: PCP Physician Assistant Medical; Referring Provider Physician Assistant Medical; Visit Provider Internal Medicine Gastroenterology
PROC: 0DJD8ZZ Inspection of Lower Intestinal Tract, Via Natural or Artificial Opening Endoscopic (ICD-10-PCS; CPT 45378; principal; 2025-06-24 09:30)
DX: Z12.11 Encounter for screening for malignant neoplasm of colon (principal); K63.5 Polyp of colon; E55.9 Vitamin D deficiency, unspecified; E78.5 Hyperlipidemia, unspecified; K21.9 Gastro-esophageal reflux disease without esophagitis; I10 Essential (primary) hypertension; F32.A Depression, unspecified; F41.9 Anxiety disorder, unspecified; E03.9 Hypothyroidism, unspecified; G47.33 Obstructive sleep apnea (adult) (pediatric); Z79.1 Long term (current) use of non-steroidal anti-inflammatories (NSAID); Z99.89 Dependence on other enabling machines and devices; Z98.890 Other specified postprocedural states; Z87.891 Personal history of nicotine dependence; Z86.711 Personal history of pulmonary embolism; Z85.820 Personal history of malignant melanoma of skin; Z86.718 Personal history of other venous thrombosis and embolism; Z80.0 Family history of malignant neoplasm of digestive organs; Z80.8 Family history of malignant neoplasm of other organs or systems
CPT/HCPCS: 45385; 88305; J2003; J2704; J7120